=== PATIENT | female | born 2000 | race Hispanic/Latino ===

== ENCOUNTER 2019-01-19 14:03 | Outpatient (CLI) | payer MEDICAID ==
--- NOTE | 2019-01-19 15:29 | ULT ---
TRANSABDOMINAL PELVIC ULTRASOUND WITH DOPPLER: DATE: 01/19/2019. PROVIDED CLINICAL HISTORY: Irregular menstrual period. FINDINGS: The uterus measures about 7.6 x 3.3 x 2.5 cm and demonstrates a normal transabdominal sonographic lamont earance. The endometrial thickness is about 4-5 mm. The right ovary measures about 2.6 x 1.6 x 1.8 cm and appears sonographically unremarkable. The left ovary measures about 2.3 x 1.7 x 1.8 cm and appears sonographically unremarkable. Color Doppler and spectral analysis of the ovarian waveforms demonstrates normal flow bilaterally. No evidence for free pelvis fluid. IMPRESSION: Unremarkable transabdominal pelvic ultrasound. POS: OFF
== END 2019-01-19 14:04 | disposition home or self-care (01) ==
LOC: BICULT 14:03
PROVIDERS: ATTEND Advanced Practice Midwife
DX: N92.6 Irregular menstruation, unspecified (principal)
CPT/HCPCS: 76856; 93976